=== PATIENT | female | born 1950 | race Two or more races ===

== ENCOUNTER 2017-01-28 18:00 | Emergency (ER) | payer MEDICARE, OTHER ==
[~2017-01-28] VITALS: Ht 160 cm; Wt 72.6 kg
[~2017-01-28 18:00] MED LIST: LEVO25TA PO; VALS160T2 PO
--- NOTE | 2017-01-28 18:08 | NUR ---
AAOX3, CAME TO ER C/O YOLANDE PAIN S/P TRIPPED AND FELL, -KO. SKIN IS WARM AND DRY. RESP IS EVEN AND UNLABORED WITH NAD NOTED. HUGO PAREDES AT BS FOR EVAL. [facility] WNL. NO NECK OR BACK PAIN REPORTED.
[2017-01-28] MEDS ORDERED: HYDROCODONE/APAP 5/325MG 1 EACH TABLET ONE (18:11)
[2017-01-28] MEDS ORDERED: HYDROCODONE/APAP 5/325MG 1 EACH TABLET PO ONE (18:30)
--- NOTE | 2017-01-28 18:47 | NUR ---
FERRIS WHEEL OPERATOR AT BEDSIDE
--- NOTE | 2017-01-28 18:47 | NUR ---
XRAY IN PROGRESS AT BS
--- NOTE | 2017-01-28 19:04 | NUR ---
REPORT GIVEN TO NINI VELASQUEZ FOR BING.
--- NOTE | 2017-01-28 19:05 | NUR ---
RECEIVED REPORT FROM NINI DAVIS FOR CONTINUE OF CARE. PT APPEARS COMFORTABLE.
--- NOTE | 2017-01-28 19:23 | NUR ---
TERRY RAMOS ON THE PHONE WITH ORTHO DR. ESQUIVEL
[2017-01-28] MEDS ORDERED: ONDANSETRON 4 MG TAB.RAPDIS ONE (19:34)
[2017-01-28] MEDS ORDERED: ONDANSETRON 4 MG TAB.RAPDIS SL ONE (20:00)
--- NOTE | 2017-01-28 20:24 | NUR ---
PT STATES SHE FEELS BETTER.
--- NOTE | 2017-01-28 20:24 | NUR ---
Danielle fang in EDM - 01/28/17 at 2025 by ELEANOR Patient discharged to home in stable condition. Written and verbal after care instructions given. Patient verbalizes understanding of instruction. ambulatory with a steady gait. pt d/c via w/c per husbands request.
--- NOTE | 2017-01-28 20:29 | NUR ---
Patient discharged to home in stable condition. Written and verbal after care instructions given. Patient verbalizes understanding of instruction. ambulatory with a steady gait. pt d/c via w/c per husbands request.
[2017-01-28 20:30] VITALS: BP 128/68
== END 2017-01-28 20:38 | disposition home or self-care (01) ==
LOC: ER 18:03
DX: S42.212A Unspecified displaced fracture of surgical neck of left humerus, initial encounter for closed fracture (principal); I10 Essential (primary) hypertension; Z88.6 Allergy status to analgesic agent; W01.0XXA Fall on same level from slipping, tripping and stumbling without subsequent striking against object, initial encounter; Y93.89 Activity, other specified; Y92.89 Other specified places as the place of occurrence of the external cause; Y99.9 Unspecified external cause status
CPT/HCPCS: 73060-TC; A4606; Q0162; Z7610